=== PATIENT | female | born 1975 | race Caucasian/White ===

== ENCOUNTER 2017-09-01 10:23 | Emergency (ER) | payer BC ==
[2017-09-01 11:45] VITALS: BP 130/90
--- NOTE | 2017-09-01 12:34 | ED ---
Influenza-Like Illness - HPI Summary HPI Summary: 41 Y/O female with complaint of nausea, diarrhea, body aches, malaise, fever and chills that began suddenly last night. Denies vomiting or dyspnea. 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 No significant cardiac or respiratory history. Medications and medical history reviewed at this visit. - History of Current Complaint Chief Complaint: UCRespiratory Time Seen by Provider: 09/01/17 12:21 Hx Obtained From: Patient Onset/Duration: Sudden Onset, Lasting Hours Severity: Moderate Associated Signs & Symptoms: Fever, Myalgia, Cough, Sore Throat, Headache Related Hx: Possible Flu/Infectious Exposure - Allergy/Home Medications Allergies/Adverse Reactions: Allergies Allergy/AdvReac Type Severity Reaction Status Date / Time MS Naproxen [From Aleve] Allergy Severe Palpitation Verified 09/01/17 11:38 s Home Medications: Home Medications Pseudoephedrine HCL ER TAB* [Sudafed 12 Hour*] 1 tab PO BID PRN 09/01/17 [ History Confirmed 09/01/17] PMH/Surg Hx/FS Hx/Imm Hx Previously Healthy: Yes Endocrine/Hematology History: Denies: Hx Diabetes, Hx Thyroid Disease Cardiovascular History: Denies: Hx Hypertension Respiratory History: Denies: Hx Asthma, Hx Chronic Obstructive Pulmonary Disease (COPD) GI History: Denies: Hx Ulcer - Surgical History Surgery Procedure, Year, and Place: tonsilectomy. left knee Infectious Disease History: Yes Infectious Disease History: Denies: Hx Clostridium Difficile, Hx Hepatitis, Hx Human Immunodeficiency Virus (HIV), Hx of Known/Suspected MRSA, Hx Shingles, Hx Tuberculosis, Hx Known/ Suspected VRE, Hx Known/Suspected VRSA, History Other Infectious Disease, Traveled Outside the in Last 30 Days - Social History Alcohol Use: Daily Substance Use Type: Reports: None Smoking Status (MU): Never Smoked Tobacco Have You Smoked in the Last Year: No Review of Systems Positive: Fever, Chills, Fatigue Eyes: Negative ENT: Negative Cardiovascular: Negative Positive: Cough Positive: Diarrhea, Nausea Genitourinary: Negative Musculoskeletal: Negative Skin: Negative Neurological: Negative Psychological: Normal All Other Systems Reviewed And Are Negative: Yes Physical Exam Triage Information Reviewed: Yes Vital Signs On Initial Exam: Initial Vitals Temp Pulse Resp BP Pulse Ox 98.9 F 80 16 130/90 99 09/01/17 11:39 09/01/17 11:39 09/01/17 11:39 09/01/17 11:39 09/01/17 11:39 Vital Signs Reviewed: Yes Appearance: Positive: No Pain Distress Skin: Positive: Warm Head/Face: Positive: Normal Head/Face Inspection Eyes: Positive: Normal ENT: Positive: Normal ENT inspection Neck: Positive: Supple, No Lymphadenopathy Respiratory/Lung Sounds: Positive: Clear to Auscultation Cardiovascular: Positive: Normal, RRR Abdomen Description: Positive: Nontender Bowel Sounds: Positive: Hyperactive Musculoskeletal: Positive: Normal Neurological: Positive: Normal Psychiatric: Positive: Normal Diagnostics - Vital Signs Vital Signs Temp Pulse Resp BP Pulse Ox 09/01/17 11:39 98.9 F 80 16 130/90 99 - Laboratory Lab Statement: Any lab studies that have been ordered have been reviewed, and results considered in the medical decision making process. Flu Symptom Course/Dx - Diagnoses Differential Diagnosis/HQI/PQRI: Positive: Bronchitis, Influenza, RSV, Upper Respiratory Infection Provider Diagnoses: Viral illness Discharge - Discharge Plan Condition: Stable Disposition: HOME Patient Education Materials: Viral Syndrome (ED) Referrals: Najma Drake NP [Primary Care Provider] - Additional Instructions: Your flu swab was negative. If symptoms worsen please return to Urgent Care. Increase fluids, get plenty of rest.
== END 2017-09-01 13:35 | disposition home or self-care (01) ==
LOC: UCEAST 10:23
DX: B34.9 Viral infection, unspecified (principal); Z88.6 Allergy status to analgesic agent
CPT/HCPCS: 87502; 99201; G0463